=== PATIENT | male | born 1990 | race Caucasian/White ===

== ENCOUNTER 2019-11-22 13:20 | Inpatient (IN) | payer OTHER ==
[2019-11-22 14:29] VITALS: BMI 21.5
--- NOTE | 2019-11-22 15:24 | BHS.RME ---
Substance Use & Tx History - Last Treatment Date of last treatment: First time in detox Physical/Psych/Mental Status - Behavior General Behavior: Increased activity (restlessness, agitation) Eye Contact: Normal Other Behaviors: Mannerisms - Cooperativeness Cooperativeness: Cooperative - Thinking Thought Processes: Goal Directed Thought content: Future oriented - Physical Health Problems Is patient presently having any pain?: No Does patient presently have any injuries (include location): Yes (scalp laceration from hitting head on cabinet) Does patient currently have a fever: No COWS - Scale Resting Pulse: 1= [place] 81-100 Sweatin= Chills/Flushing Restless Observation: 1= Difficult to Sit Still Pupil Size: 1= Pupils >than Normal Bone or Joint Aches: 2= Severe Diffuse Aches Runny Nose/ Eye Tearin= Runny Nose/Eyes GI Upset > 30mins: 1= Stomach Cramp Tremor Observation: 1= Tremor [place], Not Seen Yawning Observation: 1= 1-2x During Session Anxiety or Irritability: 1=Feels Anxious/Irritable Goose Flesh Skin: 3=Piloerection COWS Score: 15 Treatment Recommendation - Level of Care Level of Care: Opioid Treatment Program (OTP)
--- NOTE | 2019-11-22 15:29 | HP ---
COWS - Scale Resting Pulse: 1= [place] 81-100 Sweatin= Chills/Flushing Restless Observation: 1= Difficult to Sit Still Pupil Size: 1= Pupils >than Normal Bone or Joint Aches: 2= Severe Diffuse Aches Runny Nose/ Eye Tearin= Runny Nose/Eyes GI Upset > 30mins: 1= Stomach Cramp Tremor Observation: 1= Tremor [place], Not Seen Yawning Observation: 1= 1-2x During Session Anxiety or Irritability: 1=Feels Anxious/Irritable Goose Flesh Skin: 3=Piloerection COWS Score: 15 CIWA Score - Admission Criteria OASAS Guidelines: Admission for Medically Managed Detox: Requires at least one of the followin. CIWA greater than 12 2. Seizures within the past 24 hours 3. Delirium tremens within the past 24 hours 4. Hallucinations within the past 24 hours 5. Acute intervention needed for co occurring medical disorder 6. Acute intervention needed for co occurring psychiatric disorder 7. Severe withdrawal that cannot be handled at a lower level of care (continued vomiting, continued diarrhea, abnormal vital signs) requiring intravenous medication and/or fluids 8. Admission [facility] Chief Complaint: Withdrawal sx Allergies/Adverse Reactions: Allergies Allergy/AdvReac Type Severity Reaction Status Date / Time No Known Allergies Allergy Verified 11/22/19 15:40 History of Present Illness: 29 year old male with heroin use presents for detox. This is his first time ever in detox, he denies h/o OD. He has no intentions of seeking rehab services. Patient has an injury to his frontal scalp that he reports happened when he hit his head to a cabinet 3 days ago. The site has 3 openings that are inflamed and painful to touch ; 8/10 on a pain scale. Patient reports he saw pus coming out yesterday. He reports after the initial occurrence 3 days ago, he went to an urgent care center where he was told to apply topical antibiotic ointment and apply warm compresses which he has been doing. Patient to be given oral antibiotic (keflex) in addition to local treatment. Exam Limitations: No Limitations - Ebola screening Have you traveled outside of the country in the last 21 days: No Have you had contact with anyone from an Ebola affected area: No Have you been sick,other than usual withdrawal symptoms: No Do you have a fever: No - Review of Systems Constitutional: Chills, Loss of Appetite, Changes in sleep, Unintentional Wgt. Loss EENT: reports: No Symptoms Reported Respiratory: reports: No Symptoms reported Cardiac: reports: No Symptoms Reported GI: reports: Nausea, Poor Appetite, Poor Fluid Intake, Abdominal cramping : reports: No Symptoms Reported Musculoskeletal: reports: Joint Pain, Muscle Weakness, Neck Pain Integumentary: reports: Sweating, Other (scalp laceration) Neuro: reports: Headache, Numbness, Tremors Endocrine: reports: No Symptoms Reported Hematology: reports: No Symptoms Reported Psychiatric: reports: No Sypmtoms Reported Other Systems: Reviewed and Negative Patient History - Patient Medical History Hx Anemia: No Hx Asthma: No Hx Chronic Obstructive Pulmonary Disease (COPD): No Hx Cancer: No Hx Cardiac Disorders: No Hx Congestive Heart Failure: No Hx Hypertension: No Hx Hypercholesterolemia: No Hx Pacemaker: No HX Cerebrovascular Accident: No Hx Seizures: No Hx Dementia: No Hx Diabetes: No Hx Gastrointestinal Disorders: No Hx Liver Disease: No Hx Genitourinary Disorders: No Hx Sexually Transmitted Disorders: No Hx Renal Disease (ESRD): No Hx Thyroid Disease: No Hx Human Immunodeficiency Virus (HIV): No Hx Hepatitis C: No Hx Depression: No Hx Suicide Attempt: No Hx Bipolar Disorder: No Hx Schizophrenia: No - Patient Surgical History Past Surgical History: No - PPD History Previous Implant?: Yes Documented Results: Negative w/o proof Implanted On Prior R Admission?: No PPD to be Administered?: Yes - Smoking Cessation Smoking history: Current every day smoker Have you smoked in the past 12 months: Yes Aproximately how many cigarettes per day: 3 Hx Chewing Tobacco Use: No Initiated information on smoking cessation: Yes 'Breaking Loose' booklet given: 11/22/19 - Substances abused Heroin Substance route: Inhalation Frequency: Daily Amount used: 2 bags Age of first use: 28 Date of last use: 11/21/19 Marijuana/Hashish Substance route: Smoking Frequency: Daily Amount used: 3 joints Age of first use: 19 Date of last use: 11/21/19 Admission Physical Exam BHS - Vital Signs Vital Signs: Vital Signs - 24 hr 11/22/19 14:26 Temperature 98.6 F Pulse Rate 86 Respiratory 20 Rate Blood Pressure 121/73 - Physical General Appearance: Yes: No Apparent Distress HEENTM: Yes: Hearing grossly Normal, Normal Voice, Pharynx Normal, Nasal Congestion, Other (scalp wound with 3 openings, painful to touch 8/10) Respiratory: Yes: Chest Non-Tender, Lungs Clear, Normal Breath Sounds, No Respiratory Distress, No Accessory Muscle Use Neck: Yes: No masses,lesions,Nodules, Supple Breast: Yes: Breast Exam Deferred Cardiology: Yes: Regular Rhythm, Regular Rate, S1, S2 Abdominal: Yes: Normal Bowel Sounds, Non Tender, Soft Genitourinary: Yes: Within Normal Limits Back: Yes: Normal Inspection Musculoskeletal: Yes: full range of Motion, Gait Steady, Pelvis Stable, Other (neck pain r/t pinched nerve) Extremities: Yes: Tremors 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, Fully Oriented, Alert, Normal Mood/Affect, Normal Response Integumentary: Yes: Cold Lymphatic: Yes: Within Normal Limits - Diagnostic (1) Opioid dependence with withdrawal Current Visit: Yes Status: Acute (2) Nicotine dependence Current Visit: Yes Status: Acute Qualifiers: Nicotine product type: cigarettes Substance use status: uncomplicated Qualified Code(s): F17.210 - Nicotine dependence, cigarettes, uncomplicated (3) Marijuana abuse Current Visit: Yes Status: Chronic (4) Infected abrasion of scalp Current Visit: Yes Status: Acute Qualifiers: Encounter type: initial encounter Qualified Code(s): S00.01XA - Abrasion of scalp, initial encounter; L08.9 - Local infection of the skin and subcutaneous tissue, unspecified Cleared for Admission S - Detox or Rehab [facility] Level of Care: Medically Managed Detox Regimen/Protocol: Methadone Claeared for Rehab Admission: No Breathalyzer - Breathalyzer Breathalyzer: 0 Urine Drug Screen - Test Device Lot number: [id number] Expiration date: 01/10/21 - Control Is test valid?: Yes - Results Drug screen NEGATIVE: No Urine drug screen results: THC-Marijuana, FEN-Fentanyl, MOP-Opiates, MTD- Methadone Inpatient Rehab Admission - Rehab Decision to Admit Inpatient rehab admission?: No
[2019-11-22] MEDS ORDERED: MAGNESIUM CITRATE 300 ML BOTTLE PO PRN (15:34)
[2019-11-22] MEDS ORDERED: NICOTINE POLACRILEX 2 MG GUM BUC PRN (15:34)
[2019-11-22] MEDS ORDERED: METHADONE HCL 10 MG TABLET (FOR DETOX USE ONLY) PO ONE (15:34)
[2019-11-22] MEDS ORDERED: NALOXONE HCL 0.4 MG/ML VIAL IM PRN (15:34)
[2019-11-22] MEDS ORDERED: cloNIDine HCL 0.1 MG TABLET PO PRN (15:34)
[2019-11-22] MEDS ORDERED: MENTHOL/PHENOL 1 EACH UD MM PRN (15:34)
[2019-11-22] MEDS ORDERED: BISMUTH SUBSALICYLATE 524 MG/30 ML UD PO PRN (15:34)
[2019-11-22] MEDS ORDERED: IBUPROFEN 400 MG TABLET (FP) PO PRN (15:34)
[2019-11-22] MEDS ORDERED: MAGNESIUM HYDROX 2400MG/30ML ORAL SUSPENSION 30 ML CUP PO PRN (15:34)
[2019-11-22] MEDS ORDERED: METHOCARBAMOL 500 MG TABLET PO PRN (15:34)
[2019-11-22] MEDS ORDERED: ACETAMINOPHEN 325 MG TABLET (FP) PO PRN ×2 (15:34)
[2019-11-22] MEDS ORDERED: MAG HYDROX/AL HYDROX/SIMETH 30 ML UNIT-DOSE CUP PO PRN (15:34)
[2019-11-22] MEDS: CEPHALEXIN MONOHYDRATE 500 MG CAPSULE (UD) PO SCH (17:28)
[2019-11-22] MEDS: MELATONIN 5 MG TABLETS PO SCH (22:01)
[2019-11-22] MEDS: THIAMINE HCL 100 MG TABLET (FP) PO SCH (22:01)
[2019-11-22] MEDS: BACITRACIN 15 GM TUBE TOPICAL OINTMENT TP SCH (22:02)
[2019-11-23] MEDS: CEPHALEXIN MONOHYDRATE 500 MG CAPSULE (UD) PO SCH ×5 (05:09→23:01)
--- NOTE | 2019-11-23 09:43 | EKG ---
Test Reason : Blood Pressure : / mmHG Vent. Rate : 067 BPM Atrial Rate : 067 BPM P-R Int : 122 ms QRS Dur : 092 ms QT Int : 376 ms P-R-T Axes : 062 079 043 degrees QTc Int : 397 ms NORMAL SINUS RHYTHM NORMAL ECG NO PREVIOUS ECGS AVAILABLE Confirmed by Ankush Estrada ([id number]) on 11/23/2019 9:42:21 AM Referred By: Confirmed By:Ankush Estrada
[2019-11-23] MEDS ORDERED: METHADONE HCL 5 MG TABLET (FOR DETOX USE ONLY) PO ONE (10:00)
[2019-11-23] MEDS: PRENATAL VITAMINS W/ FOLIC ACID TABLET (FP) PO SCH (10:10)
[2019-11-23] MEDS: BACITRACIN 15 GM TUBE TOPICAL OINTMENT TP SCH ×2 (10:10→22:08)
[2019-11-23] MEDS: NICOTINE 7 MG/24 HOURS TOPICAL PATCH TD SCH (10:14)
--- NOTE | 2019-11-23 10:51 | PN ---
BHS COWS - Scale Resting Pulse: 0= [place] 80 or Below Sweatin= No chills or Flushing Restless Observation: 1= Difficult to Sit Still Pupil Size: 1= Pupils >than Normal Bone or Joint Aches: 1= Mild Discomfort Runny Nose/ Eye Tearin= Nasal Congestion GI Upset > 30mins: 1= Stomach Cramp Tremor Observation of Outstretched Hands: 2= Slight Tremor Visible Yawning Observation: 1= 1-2x During Session Anxiety or Irritability: 2=Irritable/Anxious Goose Flesh Skin: 0=Smooth Skin COWS Score: 10 BHS Progress Note (SOAP) Subjective: alert,irritable,anxious,interrupted sleep,pain in the body and back,are of infected scalp no drainage Objective: 11/23/19 10:54 Vital Signs Temperature 96.1 F L 11/23/19 06:03 Pulse Rate 54 L 11/23/19 06:03 Respiratory Rate 16 11/23/19 06:03 Blood Pressure 115/73 11/23/19 06:03 O2 Sat by Pulse Oximetry (%) 96 11/23/19 06:03 labs pending Assessment: 11/23/19 10:55 withdrawal symptom Plan: continue detox methadone regimen ,encourage oral fluid,continue keflex 500 mgs po q 6 hrs and bacitracin ointment bid
[2019-11-23 11:08] LABS: HEMATOCRIT 35.9 % (35.4-49); HEMOGLOBIN 11.2 GM/dL (11.7-16.9); MCH 21.4 pg (25.7-33.7); MCHC 31.3 g/dl (32.0-35.9); MEAN CELL VOLUME 68.5 fl (80-96); MEAN PLT VOLUME 8.4 fl (7.5-11.1); PLATELET COUNT 262 K/MM3 (134-434); RBC 5.24 M/mm3 (4.00-5.60); RDW 15.5 % (11.9-15.9); WHITE BLOOD COUNT 6.9 K/mm3 (4.0-10.0)
[2019-11-23 11:25] LABS: ALBUMIN 3.4 g/dl (3.4-5.0); BILIRUBIN,TOTAL 0.9 mg/dL (0.2-1); BLOOD UREA NITROGEN 9.5 mg/dL (7-18); CALCIUM 8.8 mg/dL (8.5-10.1); CREATININE 0.7 mg/dL (0.55-1.3); POTASSIUM 4.3 mmol/L (3.5-5.1); TOT PROT 6.4 g/dl (6.4-8.2)
[2019-11-23] MEDS: THIAMINE HCL 100 MG TABLET (FP) PO SCH (22:08)
[2019-11-23] MEDS: MELATONIN 5 MG TABLETS PO SCH (22:08)
[2019-11-24] MEDS: CEPHALEXIN MONOHYDRATE 500 MG CAPSULE (UD) PO SCH ×4 (06:11→23:42)
[2019-11-24] MEDS ORDERED: METHADONE HCL 10 MG TABLET (FOR DETOX USE ONLY) PO ONE (10:00)
[2019-11-24] MEDS: BACITRACIN 15 GM TUBE TOPICAL OINTMENT TP SCH ×2 (10:10→21:20)
[2019-11-24] MEDS: PRENATAL VITAMINS W/ FOLIC ACID TABLET (FP) PO SCH (10:11)
[2019-11-24] MEDS: NICOTINE 7 MG/24 HOURS TOPICAL PATCH TD SCH (10:12)
--- NOTE | 2019-11-24 13:33 | PN ---
BHS COWS - Scale Resting Pulse: 0= [place] 80 or Below Sweatin=Flushed/Facial Moisture Restless Observation: 1= Difficult to Sit Still Pupil Size: 0= Normal to Room Light Bone or Joint Aches: 1= Mild Discomfort Runny Nose/ Eye Tearin= Runny Nose/Eyes GI Upset > 30mins: 2= Nausea/Diarrhea Tremor Observation of Outstretched Hands: 1= Tremor [place], Not Seen Yawning Observation: 0= None Anxiety or Irritability: 2=Irritable/Anxious Goose Flesh Skin: 0=Smooth Skin (Patient reports back pain,) COWS Score: 11 BHS Progress Note (SOAP) Subjective: COWS score 11. C/O abscess on scalp-right side and stye on left eyelid. Objective: Physical General Appearance: Anxious HEENTM: Yes: Hearing grossly Normal, Normal Voice, Pharynx Normal, Nasal Congestion, scalp wound with 3 openings, some exudate, raised red area, tender. 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 Oriented, Alert, 11/24/19 13:33 11/24/19 13:38 11/24/19 13:42 Vital Signs Period Temp Pulse Resp BP Sys/Farah Pulse Ox Last 24 Hr 97.1 F-98.0 F 66-71 16-20 105-118/61-83 96-98 Laboratory Last Values WBC 6.9 K/mm3 (4.0-10.0) 11/23/19 08:00 RBC 5.24 M/mm3 (4.00-5.60) 11/23/19 08:00 Hgb 11.2 GM/dL (11.7-16.9) L 11/23/19 08:00 Hct 35.9 % (35.4-49) 11/23/19 08:00 MCV 68.5 fl (80-96) L 11/23/19 08:00 MCH 21.4 pg (25.7-33.7) L 11/23/19 08:00 MCHC 31.3 g/dl (32.0-35.9) L 11/23/19 08:00 RDW 15.5 % (11.9-15.9) 11/23/19 08:00 Plt Count 262 K/MM3 (134-434) 11/23/19 08:00 MPV 8.4 fl (7.5-11.1) 11/23/19 08:00 Sodium 137 mmol/L (136-145) 11/23/19 08:00 Potassium 4.3 mmol/L (3.5-5.1) 11/23/19 08:00 Chloride 103 mmol/L (98-107) 11/23/19 08:00 Carbon Dioxide 30 mmol/L (21-32) 11/23/19 08:00 Anion Gap 4 MMOL/L (8-16) L 11/23/19 08:00 BUN 9.5 mg/dL (7-18) 11/23/19 08:00 Creatinine 0.7 mg/dL (0.55-1.3) 11/23/19 08:00 Est GFR (CKD-EPI)AfAm 147.81 11/23/19 08:00 Est GFR (CKD-EPI)NonAf 127.53 11/23/19 08:00 Random Glucose 93 mg/dL (74-106) 11/23/19 08:00 Calcium 8.8 mg/dL (8.5-10.1) 11/23/19 08:00 Total Bilirubin 0.9 mg/dL (0.2-1) 11/23/19 08:00 AST 31 U/L (15-37) 11/23/19 08:00 ALT 51 U/L (13-61) 11/23/19 08:00 Alkaline Phosphatase 65 U/L (45-117) 11/23/19 08:00 Total Protein 6.4 g/dl (6.4-8.2) 11/23/19 08:00 Albumin 3.4 g/dl (3.4-5.0) 11/23/19 08:00 Syphilis Serology Non-reactive (NONREACTIVE) 11/23/19 08:00 COVID-19 (ATIYA) Not detected (Not Detected) 11/22/19 13:15 Assessment: Withdrawal from Heroin Abscess, scalp Stye, left eyelid 11/24/19 13:43 11/24/19 13:44 Plan: Withdrawal: Continue Detox Hydration Encourage nutrition Abscess: continue bacitracin and Keflex Stye: Continue Keflex
[2019-11-24] MEDS ORDERED: LIDOCAINE 5% TOPICAL PATCH TP SCH (13:45)
[2019-11-24 20:58] VITALS: TEMP 97.7
[2019-11-24] MEDS: MELATONIN 5 MG TABLETS PO SCH (21:19)
[2019-11-24] MEDS: THIAMINE HCL 100 MG TABLET (FP) PO SCH (21:19)
[2019-11-24] MEDS ORDERED: LIDOCAINE PATCH REMOVAL MC SCH (22:00)
[2019-11-25] MEDS ORDERED: METHADONE HCL 5 MG TABLET (FOR DETOX USE ONLY) PO ONE (06:00)
[2019-11-25 06:37] VITALS: BP 126/70; PULSE 68
[2019-11-25] MEDS: CEPHALEXIN MONOHYDRATE 500 MG CAPSULE (UD) PO SCH (06:45)
[2019-11-25] MEDS: BACITRACIN 15 GM TUBE TOPICAL OINTMENT TP SCH (09:30)
[2019-11-25] MEDS: NICOTINE 7 MG/24 HOURS TOPICAL PATCH TD SCH (09:30)
[2019-11-25] MEDS: PRENATAL VITAMINS W/ FOLIC ACID TABLET (FP) PO SCH (09:30)
--- NOTE | 2019-11-25 14:24 | DS ---
[facility] Detox Discharge Summary Admission Date: 11/22/19 Discharge Date: 11/25/19 - History Present History: Cannabis Dependence, Opioid Dependence Additional Comments: Pt reports he goes to [place], [place] for medical management. 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 Pertinent Past History: infected Abrasion of scalp - Physical Exam Results Vital Signs: Vital Signs Temperature 97.7 F 11/25/19 06:36 Pulse Rate 68 11/25/19 06:36 Respiratory Rate 17 11/25/19 06:36 Blood Pressure 126/70 11/25/19 06:36 O2 Sat by Pulse Oximetry (%) 96 11/25/19 06:36 Neuro;Alert o x 3 nad oob ambulating with steady gait Extremities:Active ROM,n o edema,skin intact Pertinent Admission Physical Exam Findings: Laboratory Tests 11/22/19 11/23/19 11/23/19 13:15 08:00 08:00 WBC 6.9 RBC 5.24 Hgb 11.2 L Hct 35.9 MCV 68.5 L MCH 21.4 L MCHC 31.3 L RDW 15.5 Plt Count 262 MPV 8.4 Sodium Potassium Chloride Carbon Dioxide Anion Gap BUN Creatinine Est GFR (CKD-EPI)AfAm Est GFR (CKD-EPI)NonAf Random Glucose Calcium Total Bilirubin AST ALT Alkaline Phosphatase Total Protein Albumin Syphilis Serology Non-reactive COVID-19 (ATIYA) Not detected 11/23/19 08:00 WBC RBC Hgb Hct MCV MCH MCHC RDW Plt Count MPV Sodium 137 Potassium 4.3 Chloride 103 Carbon Dioxide 30 Anion Gap 4 L BUN 9.5 Creatinine 0.7 Est GFR (CKD-EPI)AfAm 147.81 Est GFR (CKD-EPI)NonAf 127.53 Random Glucose 93 Calcium 8.8 Total Bilirubin 0.9 AST 31 ALT 51 Alkaline Phosphatase 65 Total Protein 6.4 Albumin 3.4 Syphilis Serology COVID-19 (ATIYA) - Treatment Hospital Course: Detox Protocol Followed, Detoxed Safely, Responded well, Discharged Condition Good, Rehab Referral Accepted Patient has Accepted a Rehab Referral to: [place], [place] - Medication Discharge Medications: Ambulatory Orders Cephalexin Monohydrate [Keflex -] 500 mg PO Q6HPO 7 Days capsule 11/24/19 - Diagnosis (1) Infected abrasion of scalp Status: Acute Qualifiers: Encounter type: initial encounter Qualified Code(s): S00.01XA - Abrasion of scalp, initial encounter; L08.9 - Local infection of the skin and subcutaneous tissue, unspecified (2) Nicotine dependence Status: Acute Qualifiers: Nicotine product type: cigarettes Substance use status: in withdrawal Qualified Code(s): F17.213 - Nicotine dependence, cigarettes, with withdrawal (3) Opioid dependence with withdrawal Status: Acute (4) Marijuana abuse Status: Chronic (5) Sty, external Status: Acute Qualifiers: Laterality: left Eyelid: upper Qualified Code(s): H00.014 - Hordeolum externum left upper eyelid - AMA Did Patient Leave Against Medical Advice: No
== END 2019-11-25 09:50 | disposition home or self-care (01) | DRG 773 ==
LOC: YASAS 13:20 → Y5N DETOX 15:47
PROVIDERS: ADMIT Allergy & Immunology; ATTEND Allergy & Immunology
PROC: HZ2ZZZZ Detoxification Services for Substance Abuse Treatment (ICD-10-PCS; principal; 2019-11-22)
DX: F11.23 Opioid dependence with withdrawal (principal); F12.20 Cannabis dependence, uncomplicated; F17.210 Nicotine dependence, cigarettes, uncomplicated; L02.811 Cutaneous abscess of head [any part, except face]; S00.01XD Abrasion of scalp, subsequent encounter; L08.9 Local infection of the skin and subcutaneous tissue, unspecified; W22.8XXD Striking against or struck by other objects, subsequent encounter
CPT/HCPCS: 36415; 80053; 85027; 86780; 93005; 93010; U0003

== ENCOUNTER 2019-12-27 15:51 | Inpatient (IN) | payer OTHER ==
[2019-12-27 17:41] VITALS: BMI 18.8
--- NOTE | 2019-12-27 18:24 | BHS.RME ---
Substance Use & Tx History - Substance Use History Heroin Substance amount: 10 bags of heroin Frequency of use: Daily Substance route: Inhalation (ex: sniffing or snorting) Date of Last Use: 12/26/19 Cocaine-Crack Substance amount: 100$ Frequency of use: More than 3 times per week Date of Last Use: 12/26/19 Marijuana/Hashish Substance amount: 50 Frequency of use: Daily Substance route: Smoking Date of Last Use: 12/26/19 - Last Treatment Date of last treatment: [facility] 11/22/19 to 11/25/19 Where was last treatment: Rehab Physical/Psych/Mental Status - Behavior Eye Contact: Normal - Cooperativeness Cooperativeness: Cooperative - Thinking Thought Processes: Logical Thought content: Future oriented - Physical Health Problems Is patient presently having any pain?: No Does patient presently have any injuries (include location): No Does patient currently have a fever: No COWS - Scale Resting Pulse: 0= [place] 80 or Below Sweatin= Chills/Flushing Restless Observation: 1= Difficult to Sit Still Pupil Size: 1= Pupils >than Normal Bone or Joint Aches: 2= Severe Diffuse Aches Runny Nose/ Eye Tearin= Runny Nose/Eyes GI Upset > 30mins: 2= Nausea/Diarrhea Tremor Observation: 2= Slight Tremor Visible Yawning Observation: 2= >3x During Session Anxiety or Irritability: 2=Irritable/Anxious Goose Flesh Skin: 0=Smooth Skin COWS Score: 15
--- NOTE | 2019-12-27 18:35 | HP ---
COWS - Scale Resting Pulse: 0= [place] 80 or Below Sweatin= Chills/Flushing Restless Observation: 1= Difficult to Sit Still Pupil Size: 1= Pupils >than Normal Bone or Joint Aches: 2= Severe Diffuse Aches Runny Nose/ Eye Tearin= Runny Nose/Eyes GI Upset > 30mins: 2= Nausea/Diarrhea Tremor Observation: 2= Slight Tremor Visible Yawning Observation: 2= >3x During Session Anxiety or Irritability: 2=Irritable/Anxious Goose Flesh Skin: 0=Smooth Skin COWS Score: 15 CIWA Score - Admission Criteria OASAS Guidelines: Admission for Medically Managed Detox: Requires at least one of the followin. CIWA greater than 12 2. Seizures within the past 24 hours 3. Delirium tremens within the past 24 hours 4. Hallucinations within the past 24 hours 5. Acute intervention needed for co occurring medical disorder 6. Acute intervention needed for co occurring psychiatric disorder 7. Severe withdrawal that cannot be handled at a lower level of care (continued vomiting, continued diarrhea, abnormal vital signs) requiring intravenous medication and/or fluids 8. Admitting History and Physical - Admission Chief Complaint: i need help to stop using heroin,cocaine,marijuna History of Present Illness: this 29 years old male with heroin,cocaine,marijuana dependence seeking detox History Source: Patient Limitations to Obtaining History: No Limitations - Smoking History Smoking history: Current every day smoker Have you smoked in the past 12 months: Yes Aproximately how many cigarettes per day: 10 - Alcohol/Substance Use Hx Alcohol Use: No History of Substance Use: reports: Cocaine, Heroin, Marijuana Date of Last Use: 12/26/19 - Social History Usual Living Arrangement: Yes: Alone Do you think of yourself as: Straight/Heterosexual ADL: Support Services Occupation: unemployed History of Recent Travel: No Other Social History: unemployed,no legal issue Admission ROS S - HPI Chief Complaint: i need help to stop using heroin and cocaine and marijuana Allergies/Adverse Reactions: Allergies Allergy/AdvReac Type Severity Reaction Status Date / Time No Known Allergies Allergy Verified 12/27/19 17:27 History of Present Illness: this 29 years old mlae with heroin,cocaine dependence seeking detox,withdrawal symptom, last treatment in rehab 11/22/19 to 11/25/19 denied seizure,denied syncope no significant period of sobriety nicotine dependence Exam Limitations: No Limitations - Ebola screening Have you traveled outside of the country in the last 21 days: No Have you had contact with anyone from an Ebola affected area: No Have you been sick,other than usual withdrawal symptoms: No Do you have a fever: No - Review of Systems Constitutional: Chills, Loss of Appetite, Malaise, Night Sweats, Changes in sleep, Weakness EENT: reports: Nose Congestion, Other (old abrasion of scalp) Respiratory: reports: No Symptoms reported Cardiac: reports: No Symptoms Reported GI: reports: Nausea, Poor Appetite, Vomiting, Abdominal cramping : reports: No Symptoms Reported Musculoskeletal: reports: Back Pain, Muscle Pain Integumentary: reports: Dryness Neuro: reports: Headache, Tremors Endocrine: reports: No Symptoms Reported Hematology: reports: No Symptoms Reported Psychiatric: reports: No Sypmtoms Reported, Judgement Intact, Mood/Affect Appropiate, Orientated x3 Other Systems: Reviewed and Negative Patient History - Patient Medical History Hx Anemia: No Hx Asthma: No Hx Chronic Obstructive Pulmonary Disease (COPD): No Hx Cancer: No Hx Cardiac Disorders: No Hx Congestive Heart Failure: No Hx Hypertension: No Hx Hypercholesterolemia: No Hx Pacemaker: No HX Cerebrovascular Accident: No Hx Seizures: No Hx Dementia: No Hx Diabetes: No Hx Gastrointestinal Disorders: No Hx Liver Disease: No Hx Genitourinary Disorders: No Hx Sexually Transmitted Disorders: No Hx Renal Disease (ESRD): No Hx Thyroid Disease: No Hx Human Immunodeficiency Virus (HIV): No Hx Hepatitis C: No Hx Depression: No Hx Suicide Attempt: No Hx Bipolar Disorder: No Hx Schizophrenia: No - Patient Surgical History Past Surgical History: No Hx Neurologic Surgery: No Hx Cataract Extraction: No Hx Cardiac Surgery: No Hx Lung Surgery: No Hx Breast Surgery: No Hx Breast Biopsy: No Hx Abdominal Surgery: No Hx Appendectomy: No Hx Cholecystectomy: No Hx Genitourinary Surgery: No Hx Section: No Hx Orthopedic Surgery: No Anesthesia Reaction: No - PPD History Previous Implant?: Yes Documented Results: Negative w/proof Date: 11/24/19 Results: 0 mm PPD to be Administered?: No - Smoking Cessation Smoking history: Current every day smoker Have you smoked in the past 12 months: Yes Aproximately how many cigarettes per day: 10 Hx Chewing Tobacco Use: No Initiated information on smoking cessation: Yes 'Breaking Loose' booklet given: 12/27/19 - Substance & Tx. History Hx Alcohol Use: No Hx Substance Use: Yes Substance Use Type: Cocaine, Heroin, Marijuana Hx Substance Use Treatment: Yes ([facility] 11/22/19 to 11/25/19) - Substances abused Heroin Substance route: Inhalation Frequency: Daily Amount used: 10 bags Age of first use: 28 Date of last use: 12/26/19 Crack Substance route: Smoking Frequency: Daily Amount used: 4 bags Age of first use: 29 Date of last use: 12/26/19 Marijuana/Hashish Substance route: Smoking Frequency: Daily Amount used: 3 bags Age of first use: 18 Date of last use: 12/26/19 Admission Physical Exam [facility] - Vital Signs Vital Signs: Vital Signs - 24 hr 12/27/19 12/27/19 17:27 17:40 Temperature 97.2 F L 97.2 F L Pulse Rate 75 75 Respiratory 18 18 Rate Blood Pressure 115/77 115/77 - Physical General Appearance: Yes: Moderate Distress, Tremorous, Irritable, Sweating, Anxious HEENTM: Yes: Normal ENT Inspection, LISET, Pharynx Normal, Other (old abarion of scalp) Respiratory: Yes: Lungs Clear, Normal Breath Sounds, No Respiratory Distress Neck: Yes: Within Normal Limits, Supple, Trachea in good position Breast: Yes: Within Normal Limits Cardiology: Yes: Within Normal Limits, Regular Rhythm, Regular Rate, S1, S2 Abdominal: Yes: Within Normal Limits, Normal Bowel Sounds, Non Tender, Flat, Soft Genitourinary: Yes: Within Normal Limits Back: Yes: Muscle Spasm Musculoskeletal: Yes: Back pain, Muscle Pain Extremities: Yes: Tremors 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, Fully Oriented, Alert, Motor Strength 5/5 Integumentary: Yes: Dry Lymphatic: Yes: Within Normal Limits - Diagnostic (1) Opioid dependence with withdrawal Current Visit: No Status: Acute (2) Nicotine dependence Current Visit: No Status: Acute Qualifiers: Nicotine product type: cigarettes Substance use status: in withdrawal Qualified Code(s): F17.213 - Nicotine dependence, cigarettes, with withdrawal (3) Abrasion of scalp Current Visit: Yes Status: Chronic Cleared for Admission [facility] - Detox or Rehab [facility] Level of Care: Medically Managed Detox Regimen/Protocol: Methadone Breathalyzer - Breathalyzer Breathalyzer: 0 Urine Drug Screen - Test Device Lot number: [id number] Expiration date: 08/18/21 - Control Is test valid?: Yes - Results Drug screen NEGATIVE: No Urine drug screen results: THC-Marijuana, FLORIAN-Cocaine, FEN-Fentanyl, MOP-Opiates Inpatient Rehab Admission - Rehab Decision to Admit Inpatient rehab admission?: No
[2019-12-27] MEDS ORDERED: MAGNESIUM HYDROX 2400MG/30ML ORAL SUSPENSION 30 ML CUP PO PRN (18:43)
[2019-12-27] MEDS ORDERED: BISMUTH SUBSALICYLATE 524 MG/30 ML UD PO PRN (18:43)
[2019-12-27] MEDS ORDERED: NICOTINE POLACRILEX 2 MG GUM BUC PRN (18:43)
[2019-12-27] MEDS ORDERED: IBUPROFEN 400 MG TABLET (FP) PO PRN (18:43)
[2019-12-27] MEDS ORDERED: MAG HYDROX/AL HYDROX/SIMETH 30 ML UNIT-DOSE CUP PO PRN (18:43)
[2019-12-27] MEDS ORDERED: MENTHOL/PHENOL 1 EACH UD MM PRN (18:43)
[2019-12-27] MEDS ORDERED: ACETAMINOPHEN 325 MG TABLET (FP) PO PRN ×2 (18:43)
[2019-12-27] MEDS ORDERED: cloNIDine HCL 0.1 MG TABLET PO PRN (18:43)
[2019-12-27] MEDS ORDERED: MAGNESIUM CITRATE 300 ML BOTTLE PO PRN (18:43)
[2019-12-27] MEDS ORDERED: NALOXONE HCL 0.4 MG/ML VIAL IM PRN (18:43)
[2019-12-27] MEDS ORDERED: METHADONE HCL 10 MG TABLET (FOR DETOX USE ONLY) PO ONE (19:30)
[2019-12-27] MEDS ORDERED: ONDANSETRON *ODT* 4 MG TABLET SL ONE (19:30)
[2019-12-27] MEDS: NICOTINE 21 MG/24 HOURS TOPICAL PATCH TD SCH (20:07)
[2019-12-27] MEDS: CLINDAMYCIN PHOSPHATE 1% TOPICAL GEL 30 GM TUBE TP SCH (22:38)
[2019-12-27] MEDS: MELATONIN 5 MG TABLETS PO SCH (22:38)
[2019-12-27] MEDS: hydrOXYzine PAMOATE 25 MG CAPSULE (FP) PO SCH (22:39)
[2019-12-27] MEDS: THIAMINE HCL 100 MG TABLET (FP) PO SCH (22:39)
[2019-12-28] MEDS: hydrOXYzine PAMOATE 25 MG CAPSULE (FP) PO SCH ×5 (05:09→22:22)
[2019-12-28] MEDS ORDERED: METHADONE HCL 5 MG TABLET (FOR DETOX USE ONLY) ONE (08:59)
[2019-12-28] MEDS ORDERED: METHADONE HCL 10 MG TABLET (FOR DETOX USE ONLY) ONE (08:59)
[2019-12-28] MEDS ORDERED: METHADONE (DETOX) 20 MG, METHADONE (DETOX) 5 MG PO ONE (10:00)
[2019-12-28] MEDS: PRENATAL VITAMINS W/ FOLIC ACID TABLET (FP) PO SCH (10:24)
[2019-12-28] MEDS: NICOTINE 21 MG/24 HOURS TOPICAL PATCH TD SCH (10:26)
[2019-12-28] MEDS: CLINDAMYCIN PHOSPHATE 1% TOPICAL GEL 30 GM TUBE TP SCH ×2 (10:55→22:21)
[2019-12-28] MEDS: diazePAM 5 MG TABLET PO PRN ×2 (10:55→22:24)
[2019-12-28 12:04] LABS: URINE APPEARANCE Clear; URINE BILIRUBIN 1+ (NEGATIVE); URINE COLOR Yellow; URINE GLUCOSE (UA) Negative (NEGATIVE); URINE KETONE Negative (NEGATIVE); URINE LEUK ESTERASE Trace (NEGATIVE); URINE NITRITE Negative (NEGATIVE); URINE PROTEIN Trace (NEGATIVE)
[2019-12-28 12:13] LABS: HEMATOCRIT 36.4 % (35.4-49); HEMOGLOBIN 11.7 GM/dL (11.7-16.9); MCH 22.1 pg (25.7-33.7); MEAN PLT VOLUME 8.5 fl (7.5-11.1); PLATELET COUNT 287 K/MM3 (134-434); RBC 5.28 M/mm3 (4.00-5.60); WHITE BLOOD COUNT 6.1 K/mm3 (4.0-10.0)
[2019-12-28 12:36] LABS: ALBUMIN 3.8 g/dl (3.4-5.0); BILIRUBIN,TOTAL 1.1 mg/dL (0.2-1); BLOOD UREA NITROGEN 12.9 mg/dL (7-18); CALCIUM 8.9 mg/dL (8.5-10.1); CREATININE 0.9 mg/dL (0.55-1.3); POTASSIUM 4.1 mmol/L (3.5-5.1); TOT PROT 6.9 g/dl (6.4-8.2)
[2019-12-28 13:46] LABS: EPI CELLS 3 /uL (0-25.1); HYALINE CASTS 50 /uL (0-3.1); URINE BACTERIA 145 /uL (0-1359); URINE RBC 5 /uL (0-23.9); URINE WBC 641 /uL (0-25.8)
--- NOTE | 2019-12-28 14:18 | PN ---
S COWS - Scale Resting Pulse: 0= [place] 80 or Below Sweatin= No chills or Flushing Restless Observation: 1= Difficult to Sit Still Pupil Size: 1= Pupils >than Normal Bone or Joint Aches: 2= Severe Diffuse Aches Runny Nose/ Eye Tearin= Runny Nose/Eyes GI Upset > 30mins: 2= Nausea/Diarrhea Tremor Observation of Outstretched Hands: 2= Slight Tremor Visible Yawning Observation: 1= 1-2x During Session Anxiety or Irritability: 2=Irritable/Anxious Goose Flesh Skin: 0=Smooth Skin COWS Score: 13 S Progress Note (SOAP) Subjective: alert,irritable,anxious,interrupted sleep,tremor,pain in the body and back Objective: 12/28/19 17:21 Vital Signs Temperature 97 F L 12/28/19 12:45 Pulse Rate 56 L 12/28/19 12:45 Respiratory Rate 18 12/28/19 12:45 Blood Pressure 96/64 12/28/19 12:45 O2 Sat by Pulse Oximetry (%) 99 12/28/19 12:45 Laboratory Last Values WBC 6.1 K/mm3 (4.0-10.0) 12/28/19 08:15 RBC 5.28 M/mm3 (4.00-5.60) 12/28/19 08:15 Hgb 11.7 GM/dL (11.7-16.9) 12/28/19 08:15 Hct 36.4 % (35.4-49) 12/28/19 08:15 MCV 69.0 fl (80-96) L 12/28/19 08:15 MCH 22.1 pg (25.7-33.7) L 12/28/19 08:15 MCHC 32.0 g/dl (32.0-35.9) 12/28/19 08:15 RDW 15.0 % (11.9-15.9) 12/28/19 08:15 Plt Count 287 K/MM3 (134-434) 12/28/19 08:15 MPV 8.5 fl (7.5-11.1) 12/28/19 08:15 Sodium 139 mmol/L (136-145) 12/28/19 08:15 Potassium 4.1 mmol/L (3.5-5.1) 12/28/19 08:15 Chloride 105 mmol/L (98-107) 12/28/19 08:15 Carbon Dioxide 25 mmol/L (21-32) 12/28/19 08:15 Anion Gap 8 MMOL/L (8-16) 12/28/19 08:15 BUN 12.9 mg/dL (7-18) 12/28/19 08:15 Creatinine 0.9 mg/dL (0.55-1.3) 12/28/19 08:15 Est GFR (CKD-EPI)AfAm 133.30 12/28/19 08:15 Est GFR (CKD-EPI)NonAf 115.01 12/28/19 08:15 Random Glucose 93 mg/dL (74-106) 12/28/19 08:15 Calcium 8.9 mg/dL (8.5-10.1) 12/28/19 08:15 Total Bilirubin 1.1 mg/dL (0.2-1) H 12/28/19 08:15 AST 16 U/L (15-37) 12/28/19 08:15 ALT 13 U/L (13-61) 12/28/19 08:15 Alkaline Phosphatase 53 U/L (45-117) 12/28/19 08:15 Total Protein 6.9 g/dl (6.4-8.2) 12/28/19 08:15 Albumin 3.8 g/dl (3.4-5.0) 12/28/19 08:15 Urine Color Yellow 12/28/19 08:15 Urine Appearance Clear 12/28/19 08:15 Urine pH 6.0 (5.0-8.0) 12/28/19 08:15 Ur Specific [place] >= 1.030 (1.010-1.035) 12/28/19 08:15 Urine Protein Trace (NEGATIVE) 12/28/19 08:15 Urine Glucose (UA) Negative (NEGATIVE) 12/28/19 08:15 Urine Ketones Negative (NEGATIVE) 12/28/19 08:15 Urine Blood Trace-intact (NEGATIVE) 12/28/19 08:15 Urine Nitrite Negative (NEGATIVE) 12/28/19 08:15 Urine Bilirubin 1+ (NEGATIVE) H 12/28/19 08:15 Urine Urobilinogen 1.0 mg/dL (0.2-1.0) 12/28/19 08:15 Ur Leukocyte Esterase Trace (NEGATIVE) 12/28/19 08:15 Urine WBC (Auto) 641 /uL (0-25.8) 12/28/19 08:15 Urine RBC (Auto) 5 /uL (0-23.9) 12/28/19 08:15 Urine Casts (Auto) 50 /uL (0-3.1) 12/28/19 08:15 U Epithel Cells (Auto) 3 /uL (0-25.1) 12/28/19 08:15 Urine Bacteria (Auto) 145 /uL (0-1359) 12/28/19 08:15 Syphilis Serology Non-reactive (NONREACTIVE) 12/28/19 08:30 Assessment: 12/28/19 17:23 withdrawal symptom Plan: continue detox methadone regimen,r/o uti,urine for c/s,start on bactrim ds 1 tab po bid,encourage oral fluid
[2019-12-28] MEDS ORDERED: SULFAMETHOXAZOLE/TRIMETHOPRIM 800MG/160MG D.S. TABLET PO ONE (17:28)
[2019-12-28] MEDS: THIAMINE HCL 100 MG TABLET (FP) PO SCH (22:22)
[2019-12-28] MEDS: SULFAMETHOXAZOLE/TRIMETHOPRIM 800MG/160MG D.S. TABLET PO SCH (22:22)
[2019-12-28] MEDS: MELATONIN 5 MG TABLETS PO SCH (22:41)
[2019-12-29] MEDS: hydrOXYzine PAMOATE 25 MG CAPSULE (FP) PO SCH ×5 (05:04→22:07)
[2019-12-29] MEDS ORDERED: METHADONE HCL 10 MG TABLET (FOR DETOX USE ONLY) PO ONE (10:00)
[2019-12-29] MEDS: CLINDAMYCIN PHOSPHATE 1% TOPICAL GEL 30 GM TUBE TP SCH ×2 (10:17→22:06)
[2019-12-29] MEDS: PRENATAL VITAMINS W/ FOLIC ACID TABLET (FP) PO SCH (10:18)
[2019-12-29] MEDS: NICOTINE 21 MG/24 HOURS TOPICAL PATCH TD SCH (10:18)
[2019-12-29] MEDS: SULFAMETHOXAZOLE/TRIMETHOPRIM 800MG/160MG D.S. TABLET PO SCH ×2 (10:18→22:07)
[2019-12-29] MEDS: diazePAM 5 MG TABLET PO PRN ×3 (10:18→22:09)
[2019-12-29] MEDS ORDERED: MASKS NR ONE (13:14)
--- NOTE | 2019-12-29 13:36 | PN ---
S COWS - Scale Resting Pulse: 0= [place] 80 or Below Sweatin= No chills or Flushing Restless Observation: 0= Sits Still Pupil Size: 0= Normal to Room Light Bone or Joint Aches: 1= Mild Discomfort Runny Nose/ Eye Tearin= Nasal Congestion GI Upset > 30mins: 2= Nausea/Diarrhea Tremor Observation of Outstretched Hands: 1= Tremor [place], Not Seen Yawning Observation: 1= 1-2x During Session Anxiety or Irritability: 2=Irritable/Anxious Goose Flesh Skin: 0=Smooth Skin COWS Score: 8 [facility] Progress Note (SOAP) Subjective: alert,irritable,anxious,interrupted sleep,tremor,pain in the body and back Objective: 12/29/19 13:33 Vital Signs Temperature 96.8 F L 12/29/19 08:26 Pulse Rate 60 12/29/19 08:26 Respiratory Rate 18 12/29/19 08:26 Blood Pressure 109/67 12/29/19 08:26 O2 Sat by Pulse Oximetry (%) 99 12/29/19 06:02 12/29/19 13:33 Laboratory Last Values WBC 6.1 K/mm3 (4.0-10.0) 12/28/19 08:15 RBC 5.28 M/mm3 (4.00-5.60) 12/28/19 08:15 Hgb 11.7 GM/dL (11.7-16.9) 12/28/19 08:15 Hct 36.4 % (35.4-49) 12/28/19 08:15 MCV 69.0 fl (80-96) L 12/28/19 08:15 MCH 22.1 pg (25.7-33.7) L 12/28/19 08:15 MCHC 32.0 g/dl (32.0-35.9) 12/28/19 08:15 RDW 15.0 % (11.9-15.9) 12/28/19 08:15 Plt Count 287 K/MM3 (134-434) 12/28/19 08:15 MPV 8.5 fl (7.5-11.1) 12/28/19 08:15 Sodium 139 mmol/L (136-145) 12/28/19 08:15 Potassium 4.1 mmol/L (3.5-5.1) 12/28/19 08:15 Chloride 105 mmol/L (98-107) 12/28/19 08:15 Carbon Dioxide 25 mmol/L (21-32) 12/28/19 08:15 Anion Gap 8 MMOL/L (8-16) 12/28/19 08:15 BUN 12.9 mg/dL (7-18) 12/28/19 08:15 Creatinine 0.9 mg/dL (0.55-1.3) 12/28/19 08:15 Est GFR (CKD-EPI)AfAm 133.30 12/28/19 08:15 Est GFR (CKD-EPI)NonAf 115.01 12/28/19 08:15 Random Glucose 93 mg/dL (74-106) 12/28/19 08:15 Calcium 8.9 mg/dL (8.5-10.1) 12/28/19 08:15 Total Bilirubin 1.1 mg/dL (0.2-1) H 12/28/19 08:15 AST 16 U/L (15-37) 12/28/19 08:15 ALT 13 U/L (13-61) 12/28/19 08:15 Alkaline Phosphatase 53 U/L (45-117) 12/28/19 08:15 Total Protein 6.9 g/dl (6.4-8.2) 12/28/19 08:15 Albumin 3.8 g/dl (3.4-5.0) 12/28/19 08:15 Urine Color Yellow 12/28/19 08:15 Urine Appearance Clear 12/28/19 08:15 Urine pH 6.0 (5.0-8.0) 12/28/19 08:15 Ur Specific [place] >= 1.030 (1.010-1.035) 12/28/19 08:15 Urine Protein Trace (NEGATIVE) 12/28/19 08:15 Urine Glucose (UA) Negative (NEGATIVE) 12/28/19 08:15 Urine Ketones Negative (NEGATIVE) 12/28/19 08:15 Urine Blood Trace-intact (NEGATIVE) 12/28/19 08:15 Urine Nitrite Negative (NEGATIVE) 12/28/19 08:15 Urine Bilirubin 1+ (NEGATIVE) H 12/28/19 08:15 Urine Urobilinogen 1.0 mg/dL (0.2-1.0) 12/28/19 08:15 Ur Leukocyte Esterase Trace (NEGATIVE) 12/28/19 08:15 Urine WBC (Auto) 641 /uL (0-25.8) 12/28/19 08:15 Urine RBC (Auto) 5 /uL (0-23.9) 12/28/19 08:15 Urine Casts (Auto) 50 /uL (0-3.1) 12/28/19 08:15 U Epithel Cells (Auto) 3 /uL (0-25.1) 12/28/19 08:15 Urine Bacteria (Auto) 145 /uL (0-1359) 12/28/19 08:15 Syphilis Serology Non-reactive (NONREACTIVE) 12/28/19 08:30 COVID-19 (ATIYA) Not detected (Not Detected) 12/27/19 22:15 urine for c/s pending Assessment: 12/29/19 13:34 withdrawal signs and symptom Plan: continue detox methadone regimen,valium 10 mgs po q 4hr for severe withdrawal,oral fluid,
[2019-12-29] MEDS: MELATONIN 5 MG TABLETS PO SCH (22:07)
[2019-12-29] MEDS: THIAMINE HCL 100 MG TABLET (FP) PO SCH (22:07)
[2019-12-30] MEDS: hydrOXYzine PAMOATE 25 MG CAPSULE (FP) PO SCH ×5 (05:34→22:16)
[2019-12-30] MEDS ORDERED: METHADONE HCL 10 MG TABLET (FOR DETOX USE ONLY) ONE (09:25)
[2019-12-30] MEDS ORDERED: METHADONE HCL 5 MG TABLET (FOR DETOX USE ONLY) ONE (09:26)
[2019-12-30] MEDS ORDERED: METHADONE (DETOX) 10 MG, METHADONE (DETOX) 5 MG PO ONE (10:00)
[2019-12-30] MEDS: SULFAMETHOXAZOLE/TRIMETHOPRIM 800MG/160MG D.S. TABLET PO SCH ×2 (10:07→22:16)
[2019-12-30] MEDS: NICOTINE 21 MG/24 HOURS TOPICAL PATCH TD SCH (10:08)
[2019-12-30] MEDS: CLINDAMYCIN PHOSPHATE 1% TOPICAL GEL 30 GM TUBE TP SCH ×2 (10:08→22:16)
[2019-12-30] MEDS: PRENATAL VITAMINS W/ FOLIC ACID TABLET (FP) PO SCH (10:08)
[2019-12-30] MEDS: METHOCARBAMOL 500 MG TABLET PO PRN (10:10)
[2019-12-30] MEDS: diazePAM 5 MG TABLET PO PRN ×4 (10:13→22:15)
--- NOTE | 2019-12-30 13:54 | PN ---
BHS COWS - Scale Resting Pulse: 0= [place] 80 or Below Sweatin= No chills or Flushing Restless Observation: 1= Difficult to Sit Still Pupil Size: 1= Pupils >than Normal Bone or Joint Aches: 2= Severe Diffuse Aches Runny Nose/ Eye Tearin= Nasal Congestion GI Upset > 30mins: 2= Nausea/Diarrhea Tremor Observation of Outstretched Hands: 2= Slight Tremor Visible Yawning Observation: 0= None Anxiety or Irritability: 2=Irritable/Anxious Goose Flesh Skin: 0=Smooth Skin COWS Score: 11 [facility] Progress Note (SOAP) Subjective: alert,irritable,anxious,interrupted sleep,pain in the body and back,urine c/s noted Objective: 12/30/19 13:50 Vital Signs Temperature 97.3 F L 12/30/19 12:45 Pulse Rate 80 12/30/19 12:45 Respiratory Rate 16 12/30/19 12:45 Blood Pressure 99/61 12/30/19 12:45 O2 Sat by Pulse Oximetry (%) 99 12/30/19 12:45 Assessment: 12/30/19 13:51 withdrawal symptom,encourage oral fluid,continue bactrim ds 1 tab po bid for uti,continue detox methadone regimen Plan: continue detox methadone regimen
[2019-12-30] MEDS: MELATONIN 5 MG TABLETS PO SCH (22:16)
[2019-12-30] MEDS: THIAMINE HCL 100 MG TABLET (FP) PO SCH (22:36)
[2019-12-31] MEDS: diazePAM 5 MG TABLET PO PRN ×3 (02:23→10:24)
[2019-12-31] MEDS: hydrOXYzine PAMOATE 25 MG CAPSULE (FP) PO SCH ×5 (06:09→22:19)
[2019-12-31] MEDS ORDERED: METHADONE HCL 10 MG TABLET (FOR DETOX USE ONLY) PO ONE (10:00)
[2019-12-31] MEDS: PRENATAL VITAMINS W/ FOLIC ACID TABLET (FP) PO SCH (10:13)
[2019-12-31] MEDS: CLINDAMYCIN PHOSPHATE 1% TOPICAL GEL 30 GM TUBE TP SCH ×2 (10:13→22:19)
[2019-12-31] MEDS: NICOTINE 21 MG/24 HOURS TOPICAL PATCH TD SCH (10:13)
[2019-12-31] MEDS: SULFAMETHOXAZOLE/TRIMETHOPRIM 800MG/160MG D.S. TABLET PO SCH ×2 (10:13→22:19)
[2019-12-31] MEDS: METHOCARBAMOL 500 MG TABLET PO PRN (14:21)
--- NOTE | 2019-12-31 15:29 | PN ---
BHS COWS - Scale Resting Pulse: 0= [place] 80 or Below Sweatin= No chills or Flushing Restless Observation: 0= Sits Still Pupil Size: 0= Normal to Room Light Bone or Joint Aches: 1= Mild Discomfort Runny Nose/ Eye Tearin= Nasal Congestion GI Upset > 30mins: 1= Stomach Cramp Tremor Observation of Outstretched Hands: 1= Tremor [place], Not Seen Yawning Observation: 0= None Anxiety or Irritability: 2=Irritable/Anxious Goose Flesh Skin: 0=Smooth Skin COWS Score: 6 [facility] Progress Note (SOAP) Subjective: alert,irritable,interrupted sleep,no urinary frequency, urine c/s showed mixed organism,less than 10,000,mot probably contaminated will do ua and urine for c/s Objective: 12/31/19 15:28 Vital Signs Temperature 97.1 F L 12/31/19 12:44 Pulse Rate 82 12/31/19 12:44 Respiratory Rate 18 12/31/19 12:44 Blood Pressure 100/68 12/31/19 12:44 O2 Sat by Pulse Oximetry (%) 99 12/31/19 12:44 Assessment: 12/31/19 15:49 withdrawal symptom Plan: repeat ua,urine for c/s,valium 5 mgs po now,discharge to rehab in am
[2019-12-31] MEDS ORDERED: diazePAM 5 MG TABLET PO ONE (16:00)
[2019-12-31 17:03] LABS: EPI CELLS >36 /uL (0-25.1); HYALINE CASTS 0 /uL (0-3.1); URINE APPEARANCE CLEAR; URINE BACTERIA 335 /uL (0-1359); URINE BILIRUBIN NEGATIVE (NEGATIVE); URINE COLOR YELLOW; URINE GLUCOSE (UA) NEGATIVE (NEGATIVE); URINE KETONE NEGATIVE (NEGATIVE); URINE LEUK ESTERASE TRACE (NEGATIVE); URINE NITRITE NEGATIVE (NEGATIVE); URINE PROTEIN NEGATIVE (NEGATIVE); URINE RBC 4 /uL (0-23.9); URINE UROBILINOGEN 0.2 mg/dL (0.2-1.0); URINE WBC 66 /uL (0-25.8)
[2019-12-31] MEDS: THIAMINE HCL 100 MG TABLET (FP) PO SCH (22:19)
[2019-12-31] MEDS: MELATONIN 5 MG TABLETS PO SCH (22:20)
[2020-01-01] MEDS: hydrOXYzine PAMOATE 25 MG CAPSULE (FP) PO SCH ×2 (05:22→10:16)
[2020-01-01] MEDS ORDERED: METHADONE HCL 5 MG TABLET (FOR DETOX USE ONLY) PO ONE (06:00)
[2020-01-01 09:32] VITALS: BP 108/74; PULSE 89; TEMP 97.6
--- NOTE | 2020-01-01 09:54 | PN ---
BHS COWS - Scale Resting Pulse: 0= [place] 80 or Below Sweatin= No chills or Flushing Restless Observation: 0= Sits Still Pupil Size: 0= Normal to Room Light Bone or Joint Aches: 0= None Runny Nose/ Eye Tearin= None GI Upset > 30mins: 0= None Tremor Observation of Outstretched Hands: 0= None Yawning Observation: 0= None Anxiety or Irritability: 1=Feels Anxious/Irritable Goose Flesh Skin: 0=Smooth Skin COWS Score: 1 [facility] Progress Note (SOAP) Subjective: alert,no complaint Objective: 01/01/20 11:07 Vital Signs Temperature 97.6 F 01/01/20 07:29 Pulse Rate 89 01/01/20 07:29 Respiratory Rate 20 01/01/20 07:29 Blood Pressure 108/74 01/01/20 07:29 O2 Sat by Pulse Oximetry (%) 98 01/01/20 06:27 Laboratory Results - last 24 hr 12/31/19 13:45 Urine Color Yellow Urine Appearance Clear Urine pH 7.0 Ur Specific [place] 1.010 Urine Protein Negative Urine Glucose (UA) Negative Urine Ketones Negative Urine Blood Negative Urine Nitrite Negative Urine Bilirubin Negative Urine Urobilinogen 0.2 Ur Leukocyte Esterase Trace Urine WBC (Auto) 66 Urine RBC (Auto) 4 Urine Casts (Auto) 0 U Epithel Cells (Auto) >36 U Sm Round Cell (Auto) Few Urine Bacteria (Auto) 335 urine for c/s pending Assessment: 01/01/20 11:08 detox completed,no withdrawal symptom no urinary frequency,no burning or frequency on urination Plan: stable for discharge today,follow up with [facility] as arrangement
[2020-01-01] MEDS: SULFAMETHOXAZOLE/TRIMETHOPRIM 800MG/160MG D.S. TABLET PO SCH (10:16)
[2020-01-01] MEDS: CLINDAMYCIN PHOSPHATE 1% TOPICAL GEL 30 GM TUBE TP SCH (10:16)
[2020-01-01] MEDS: PRENATAL VITAMINS W/ FOLIC ACID TABLET (FP) PO SCH (10:16)
[2020-01-01] MEDS: NICOTINE 21 MG/24 HOURS TOPICAL PATCH TD SCH (10:19)
--- NOTE | 2020-01-01 11:12 | DS ---
[facility] Detox Discharge Summary Admission Date: 12/27/19 Discharge Date: 01/01/20 - History Present History: Cannabis Dependence, Cocaine Dependence, Opioid Dependence Additional Comments: alert,oriented x 3 ambulation on the unit lung clear on auscultation bilaterally abdomen soft,no pain,no tenderness, detox completed,no withdrawal symptom stable for discharge today follow up with after care program as arrangement,[facility] repeat urine for c/s pending total time of discharge 30 minutes Pertinent Past History: infected abrasion of scalp nicotine dependence - Physical Exam Results Vital Signs: Vital Signs Temperature 97.6 F 01/01/20 07:29 Pulse Rate 89 01/01/20 07:29 Respiratory Rate 20 01/01/20 07:29 Blood Pressure 108/74 01/01/20 07:29 O2 Sat by Pulse Oximetry (%) 98 01/01/20 06:27 Pertinent Admission Physical Exam Findings: withdrawal signs and symptom Laboratory Last Values WBC 6.1 K/mm3 (4.0-10.0) 12/28/19 08:15 RBC 5.28 M/mm3 (4.00-5.60) 12/28/19 08:15 Hgb 11.7 GM/dL (11.7-16.9) 12/28/19 08:15 Hct 36.4 % (35.4-49) 12/28/19 08:15 MCV 69.0 fl (80-96) L 12/28/19 08:15 MCH 22.1 pg (25.7-33.7) L 12/28/19 08:15 MCHC 32.0 g/dl (32.0-35.9) 12/28/19 08:15 RDW 15.0 % (11.9-15.9) 12/28/19 08:15 Plt Count 287 K/MM3 (134-434) 12/28/19 08:15 MPV 8.5 fl (7.5-11.1) 12/28/19 08:15 Sodium 139 mmol/L (136-145) 12/28/19 08:15 Potassium 4.1 mmol/L (3.5-5.1) 12/28/19 08:15 Chloride 105 mmol/L (98-107) 12/28/19 08:15 Carbon Dioxide 25 mmol/L (21-32) 12/28/19 08:15 Anion Gap 8 MMOL/L (8-16) 12/28/19 08:15 BUN 12.9 mg/dL (7-18) 12/28/19 08:15 Creatinine 0.9 mg/dL (0.55-1.3) 12/28/19 08:15 Est GFR (CKD-EPI)AfAm 133.30 12/28/19 08:15 Est GFR (CKD-EPI)NonAf 115.01 12/28/19 08:15 Random Glucose 93 mg/dL (74-106) 12/28/19 08:15 Calcium 8.9 mg/dL (8.5-10.1) 12/28/19 08:15 Total Bilirubin 1.1 mg/dL (0.2-1) H 12/28/19 08:15 AST 16 U/L (15-37) 12/28/19 08:15 ALT 13 U/L (13-61) 12/28/19 08:15 Alkaline Phosphatase 53 U/L (45-117) 12/28/19 08:15 Total Protein 6.9 g/dl (6.4-8.2) 12/28/19 08:15 Albumin 3.8 g/dl (3.4-5.0) 12/28/19 08:15 Urine Color Yellow 12/31/19 13:45 Urine Appearance Clear 12/31/19 13:45 Urine pH 7.0 (5.0-8.0) 12/31/19 13:45 Ur Specific [place] 1.010 (1.010-1.035) 12/31/19 13:45 Urine Protein Negative (NEGATIVE) 12/31/19 13:45 Urine Glucose (UA) Negative (NEGATIVE) 12/31/19 13:45 Urine Ketones Negative (NEGATIVE) 12/31/19 13:45 Urine Blood Negative (NEGATIVE) 12/31/19 13:45 Urine Nitrite Negative (NEGATIVE) 12/31/19 13:45 Urine Bilirubin Negative (NEGATIVE) 12/31/19 13:45 Urine Urobilinogen 0.2 mg/dL (0.2-1.0) 12/31/19 13:45 Ur Leukocyte Esterase Trace (NEGATIVE) 12/31/19 13:45 Urine WBC (Auto) 66 /uL (0-25.8) 12/31/19 13:45 Urine RBC (Auto) 4 /uL (0-23.9) 12/31/19 13:45 Urine Casts (Auto) 0 /uL (0-3.1) 12/31/19 13:45 U Epithel Cells (Auto) >36 /uL (0-25.1) 12/31/19 13:45 U Sm Round Cell (Auto) Few 12/31/19 13:45 Urine Bacteria (Auto) 335 /uL (0-1359) 12/31/19 13:45 Syphilis Serology Non-reactive (NONREACTIVE) 12/28/19 08:30 COVID-19 (ATIYA) Not detected (Not Detected) 12/27/19 22:15 Vital Signs Temperature 97.6 F 01/01/20 08:29 Pulse Rate 89 01/01/20 08:29 Respiratory Rate 20 01/01/20 08:29 Blood Pressure 108/74 01/01/20 08:29 O2 Sat by Pulse Oximetry (%) 98 01/01/20 06:27 - Treatment Hospital Course: Detox Protocol Followed, Detoxed Safely, Responded well, Discharged Condition Good, Rehab Referral Accepted Patient has Accepted a Rehab Referral to: [facility] - Medication Discharge Medications: Ambulatory Orders NK [No Known Home Medication] 12/27/19 - Diagnosis (1) Opioid dependence with withdrawal Current Visit: No Status: Acute (2) Nicotine dependence Current Visit: No Status: Acute Qualifiers: Nicotine product type: cigarettes Substance use status: in withdrawal Qualified Code(s): F17.213 - Nicotine dependence, cigarettes, with withdrawal (3) 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
--- NOTE | 2020-01-04 12:48 | PN ---
[facility] Progress Note Note: addendum patient repeat urine for c/s on 01/01/2020 no growth,patient changed his mind did not want to go to [facility]hab [facility] today, he will go home option 1 to return to rehab at [facility] on Sat or to [place] out patient program at [address] [place] [address] , left the unit in good and stable condition
== END 2020-01-01 10:55 | disposition other institution (70) | DRG 773 ==
LOC: YASAS 15:51 → Y3N 19:16
PROVIDERS: ADMIT Allergy & Immunology; ATTEND Allergy & Immunology
PROC: HZ2ZZZZ Detoxification Services for Substance Abuse Treatment (ICD-10-PCS; principal; 2019-12-27)
DX: F11.23 Opioid dependence with withdrawal (principal); F14.20 Cocaine dependence, uncomplicated; F12.20 Cannabis dependence, uncomplicated; F17.210 Nicotine dependence, cigarettes, uncomplicated; N39.0 Urinary tract infection, site not specified; B96.89 Other specified bacterial agents as the cause of diseases classified elsewhere
CPT/HCPCS: 36415; 80053; 81003; 85027; 86780; 87077; 87086; J0735; Q0162; U0003